=== PATIENT | male | born 1975 | race Caucasian/White ===

== ENCOUNTER 2022-10-08 18:52 | Emergency (ER) | payer SELFPAY ==
[2022-10-08] MEDS ORDERED: ALBUTEROL 2.5 MG/3 ML NEB SOL ONE (19:52)
[2022-10-08] MEDS ORDERED: BENZONATATE 100 MG CAP PO ONE (19:52)
[2022-10-08] MEDS ORDERED: IPRATROPIUM BROM 0.5MG/2.5ML ONE (19:52)
[2022-10-08] MEDS ORDERED: ONDANSETRON 4 MG/2 ML VIAL ONE (19:52)
[2022-10-08 20:03] LABS: Absolute Lymphocytes (CBC) 1.7 K/uL (0.7-4.9); Hematocrit 45.3 % (39.6-49.0); Lymphocytes % 40.3 % (15.3-44.8); MCV 91.4 fL (80-100); RBC Red Blood Cell Count 4.95 M/uL (4.33-5.43)
[2022-10-08 20:14] LABS: Protime INR 1.19
[2022-10-08 20:24] LABS: Albumin 3.7 g/dL (3.4-5.0); Bilirubin Direct 0.1 mg/dL (0-0.2); Bilirubin Total 0.4 mg/dL (0.2-1.0); Magnesium 2.2 mg/dL (1.8-2.4); Potassium 4.1 mmol/L (3.5-5.1); Protein, Total 7.3 g/dL (6.4-8.2); Troponin High Sensitivity 5.8 pg/mL (<58.9)
[2022-10-08 21:02] LABS: SARS-CoV-2 Antigen Rapid Res Negative (Negative)
--- NOTE | 2022-10-08 22:00 | RAD REPORT ---
EXAM DESCRIPTION: RAD - Chest Single View - 10/08/2022 9:10 pm CLINICAL HISTORY: CHEST PAIN COMPARISON: None TECHNIQUE: AP portable chest image was obtained 10/08/2022 9:10 pm . FINDINGS: No peripheral mass consolidation. Interstitial pattern is mildly prominent. Left hilar ful lness is present. Heart and vasculature are normal. No measurable pleural effusion and no pneumothora x. No acute bony abnormality seen. No acute aortic findings suspected. IMPRESSION: No peripheral mass or consolidation. Left hilar fullness and interstitial pattern are probably baseline. Infiltrate or mass are unlikely.
--- NOTE | 2022-10-08 22:12 | ER ---
Nurse's Notes [facility] Name: Sourav Barrios Age: 47 yrs Sex: Male : 1975 Arrival Date: 10/08/2022 Time: 18:57 Bed 5 Private MD: Diagnosis: Acute bronchitis, unspecified Presentation: 10/08 19:17 Chief complaint: Patient states: Coughing, congestion, N/V, fever X 1 week. Coronavirus ld1 screen: At this time, the client does not indicate any symptoms associated with coronavirus-19. Ebola Screen: No symptoms or risks identified at this time. Initial Sepsis Screen: Does the patient meet any 2 criteria? No. Patient's initial sepsis screen is negative. Does the patient have a suspected source of infection? No. Patient's initial sepsis screen is negative. Risk Assessment: Do you want to hurt yourself or someone else? Patient reports no desire to harm self or others. Onset of symptoms was October 08, 2022. 19:17 Method Of Arrival: Ambulatory ld1 19:17 Acuity: NAT 4 ld1 Triage Assessment: 19:18 General: Appears in no apparent distress. comfortable, Behavior is calm, cooperative, ld1 appropriate for age. Pain: Denies pain. EENT: No signs and/or symptoms were reported regarding the EENT system. Neuro: Level of Consciousness is awake, alert, obeys commands, Oriented to person, place, time, situation, Appropriate for age. Cardiovascular: Capillary refill < 3 seconds Patient's skin is warm and dry. Respiratory: Reports shortness of breath at rest cough that is productive, Airway is patent Respiratory effort is even, unlabored, Onset: The symptoms/episode began/occurred gradually, the patient has mild shortness of breath. GI: Abdomen is flat, non-distended. : No signs and/or symptoms were reported regarding the genitourinary system. Derm: No signs and/or symptoms reported regarding the dermatologic system. Musculoskeletal: No signs and/or symptoms reported regarding the musculoskeletal system. Historical: - Allergies: 19:18 Codeine; ld1 19:18 Narcotics; ld1 - Home Meds: 19:18 None [Active]; ld1 - PMHx: 19:18 None; ld1 - PSHx: 19:18 None; ld1 - Immunization history:: Adult Immunizations up to date, Client reports receiving the 2nd dose of the Covid vaccine. - Social history:: Smoking status: Patient reports the use of cigarette tobacco products, smokes one-half pack cigarettes per day, Patient uses alcohol, occasionally. Screenin:27 Abuse screen: Denies threats or abuse. Nutritional screening: No deficits noted. kl Tuberculosis screening: No symptoms or risk factors identified. Fall Risk None identified. Assessment: 19:26 General: Appears in no apparent distress. comfortable, well developed, well nourished, Behavior is calm, cooperative. Pain: Complains of pain in anterior aspect of right upper chest and right nipple Pain currently is 5 out of 10 on a pain scale. Aggravated by coughing. Neuro: No deficits noted. Cardiovascular: No deficits noted. Capillary refill < 3 seconds Rhythm is sinus rhythm. Respiratory: Airway is patent Respiratory effort is even, unlabored, Respiratory pattern is regular, symmetrical. GI: No deficits noted. No signs and/or symptoms were reported involving the gastrointestinal system. : No deficits noted. No signs and/or symptoms were reported regarding the genitourinary system. EENT: No deficits noted. No signs and/or symptoms were reported regarding the EENT system. Derm: No deficits noted. No signs and/or symptoms reported regarding the dermatologic system. Musculoskeletal: No deficits noted. No signs and/or symptoms reported regarding the musculoskeletal system. 20:30 Reassessment: Patient appears in no apparent distress at this time. Patient is alert, kl oriented x 3, equal unlabored respirations, skin warm/dry/pink. Patient states feeling better. Patient states symptoms have improved. 21:30 Reassessment: No changes from previously documented assessment. Patient and/or family kl updated on plan of care and expected duration. Pain level reassessed. Patient is alert, oriented x 3, equal unlabored respirations, skin warm/dry/pink. 22:29 Respiratory: Breath sounds are clear. Vital Signs: 19:17 BP 109 / 74; Pulse 74; Resp 18; Temp 99.5(O); Pulse Ox 99% on R/A; Weight 116.12 kg; ld1 Height 6 ft. 0 in. (182.88 cm); Pain 0/10; 20:12 BP 104 / 79; Pulse 52; Resp 18; Pulse Ox 100% on Nebulizer Mask; Pain 0/10; kl 22:28 BP 98 / 65; Pulse 72; Resp 16; Temp 98.2; Pulse Ox 99% on R/A; Pain 0/10; kl 19:17 Body Mass Index 34.72 (116.12 kg, 182.88 cm) ld1 ED Course: 18:57 Patient arrived in ED. am2 19:12 Girma Cisneros PA is PHCP. cp 19:12 Kyaw Lyn MD is Attending Physician. cp 19:18 Triage completed. ld1 19:18 Arm band placed on right wrist. ld1 19:27 No provider procedures requiring assistance completed. kl 19:28 Client placed on continuous cardiac and pulse oximetry monitoring. NIBP monitoring kl applied. 19:29 EKG completed in triage. Results shown to MD. kl 19:45 Inserted saline lock: 20 gauge in right antecubital area, using aseptic technique. kl 19:59 Basic Metabolic Panel Sent. kl 19:59 CBC with Diff Sent. kl 19:59 LFT's Sent. kl 19:59 Magnesium Sent. kl 19:59 NT PRO-BNP Sent. kl 19:59 PT-INR Sent. kl 19:59 Troponin HS Sent. kl 21:12 XRAY Chest (1 view) In Process Unspecified. EDMS 22:29 IV discontinued, intact, bleeding controlled, No redness/swelling at site. Pressure kl dressing applied. 22:30 Patient has correct armband on for positive identification. kl Administered Medications: 19:59 Drug: Zofran (Ondansetron) 4 mg Route: IVP; Site: right antecubital; kl 19:59 Drug: Albuterol - atroVENT (ipratropium) (3:1) (2.5 mg - 0.5 mg) 3 ml Route: Nebulizer; kl 19:59 Drug: Tessalon Perle (benzonatate) 200 mg Route: PO; kl Medication: 22:30 VIS not applicable for this client. Outcome: 22:11 Discharge ordered by . cp 22:29 Discharged to home ambulatory, with family. kl 22:29 Condition: improved 22:29 Discharge instructions given to patient, family, Instructed on discharge instructions, follow up and referral plans. Demonstrated understanding of instructions, follow-up care, medications, Prescriptions given X 3. 22:30 Patient left the ED. Signatures: Dispatcher [employer] EDME Isaak, Pepper, RN RN Girma Vital PA PA cp Moreno, Amanda am2 Dibbern, Lauren, RN RN ld1 Corrections: (The following items were deleted from the chart) 19:18 Allergies: No Known Allergies; ld1 ld1 19:18 Allergies: Latex, Natural Rubber; ld1 ld1
--- NOTE | 2022-10-08 22:12 | EDPHYS ---
Physician Documentation [facility] Name: Sourav Barrios Age: 47 yrs Sex: Male : 1975 Arrival Date: 10/08/2022 Time: 18:57 Bed 5 Private MD: ED Physician Kyaw Lyn HPI: 10/08 19:50 This 47 yrs old Male presents to ER via Ambulatory with complaints of Nasal Congestion, cp Chest Congestion, Breathing Difficulty. 19:50 The patient or guardian reports cough, that is constant. Onset: The symptoms/episode cp began/occurred 1 week(s) ago. Severity of symptoms: in the emergency department the symptoms are unchanged, despite home interventions. Associated signs and symptoms: Pertinent positives: chest pain, with cough, sore throat, nasal congestion, Pertinent negatives: fever. Historical: - Allergies: 19:18 Codeine; ld1 19:18 Narcotics; ld1 - Home Meds: 19:18 None [Active]; ld1 - PMHx: 19:18 None; ld1 - PSHx: 19:18 None; ld1 - Immunization history:: Adult Immunizations up to date, Client reports receiving the 2nd dose of the Covid vaccine. - Social history:: Smoking status: Patient reports the use of cigarette tobacco products, smokes one-half pack cigarettes per day, Patient uses alcohol, occasionally. ROS: 19:55 Constitutional: Positive for body aches, Negative for fever, poor PO intake. cp 19:55 Eyes: Negative for injury, pain, redness, and discharge. cp 19:55 ENT: Positive for sore throat, Negative for drainage from ear(s), ear pain, difficulty swallowing, difficulty handling secretions. 19:55 Cardiovascular: Positive for chest pain, with cough, Negative for edema, palpitations. 19:55 Respiratory: Positive for cough, "sounds productive", shortness of breath. 19:55 Abdomen/GI: Negative for abdominal pain, vomiting, diarrhea, constipation. 19:55 Neuro: Positive for headache, Negative for altered mental status, dizziness, weakness. 19:55 All other systems are negative. Exam: 20:00 Constitutional: The patient appears in no acute distress, alert, awake, cp non-diaphoretic, non-toxic, well developed, well nourished. 20:00 Head/Face: Normocephalic, atraumatic. cp 20:00 Eyes: Periorbital structures: appear normal, Conjunctiva: normal, no exudate, no injection, Sclera: no appreciated abnormality, Lids and lashes: appear normal, bilaterally. 20:00 ENT: External ear(s): are unremarkable, Ear canal(s): are normal, clear, TM's: dullness, bilaterally, Nose: is normal, Mouth: Lips: moist, Oral mucosa: pink and intact, moist, Posterior pharynx: Airway: no evidence of obstruction, patent, Tonsils: no enlargement, no exudate, Uvula: midline, erythema, that is mild, exudate, is not appreciated. 20:00 Neck: ROM/movement: is normal, is supple, without pain, no range of motions limitations, no meningismus. 20:00 Chest/axilla: Inspection: normal. 20:00 Cardiovascular: Rate: normal, Rhythm: regular, Edema: is not appreciated, JVD: is not appreciated. 20:00 Respiratory: the patient does not display signs of respiratory distress, Respirations: normal, no use of accessory muscles, no retractions, labored breathing, is not present, Breath sounds: bronchial sounds, that are mild, are heard diffusely, decreased breath sounds, are not appreciated, stridor, is not appreciated, + upper airway congestion. 20:00 Abdomen/GI: Inspection: abdomen appears normal, Bowel sounds: active, all quadrants, Palpation: soft, in all quadrants, mild abdominal tenderness, in the right diaphragm, rebound tenderness, is not appreciated, involuntary guarding, is not appreciated. 20:00 Back: pain, is absent, ROM is normal. 20:00 Skin: cellulitis, is not appreciated, no rash present. 20:00 Neuro: Orientation: to person, place \\T\\ time. Mentation: is normal, Motor: moves all fours, strength is normal, Sensation: is normal. Vital Signs: 19:17 BP 109 / 74; Pulse 74; Resp 18; Temp 99.5(O); Pulse Ox 99% on R/A; Weight 116.12 kg; ld1 Height 6 ft. 0 in. (182.88 cm); Pain 0/10; 20:12 BP 104 / 79; Pulse 52; Resp 18; Pulse Ox 100% on Nebulizer Mask; Pain 0/10; kl 22:28 BP 98 / 65; Pulse 72; Resp 16; Temp 98.2; Pulse Ox 99% on R/A; Pain 0/10; kl 19:17 Body Mass Index 34.72 (116.12 kg, 182.88 cm) ld1 MDM: 19:19 Patient medically screened. cp 22:10 Data reviewed: vital signs, nurses notes, lab test result(s), EKG, radiologic studies, cp plain films. 22:10 Differential Diagnosis: Bronchitis Influenza Upper Respiratory Infection Sinusitis cp Pharyngitis Viral Syndrome Pneumonia. Test interpretation: by ED physician or midlevel provider: ECG, plain radiologic studies. Counseling: I had a detailed discussion with the patient and/or guardian regarding: the historical points, exam findings, and any diagnostic results supporting the discharge/admit diagnosis, lab results, radiology results, the need for outpatient follow up, a family practitioner, to return to the emergency department if symptoms worsen or persist or if there are any questions or concerns that arise at home. Response to treatment: the patient's symptoms have markedly improved after treatment, and as a result, I will discharge patient. 10/08 19:41 Order name: Basic Metabolic Panel; Complete Time: 20:41 cp 10/08 19:41 Order name: CBC with Diff; Complete Time: 20:41 cp 10/08 19:41 Order name: LFT's; Complete Time: 20:41 cp 10/08 19:41 Order name: Magnesium; Complete Time: 20:41 cp 10/08 19:41 Order name: NT PRO-BNP; Complete Time: 20:41 cp 10/08 19:41 Order name: PT-INR; Complete Time: 20:41 cp 10/08 19:41 Order name: Troponin HS; Complete Time: 20:41 cp 10/08 19:41 Order name: XRAY Chest (1 view); Complete Time: 22:08 cp 10/08 20:00 Order name: SARS-COV-2 Antigen Rapid; Complete Time: 21:54 wm 10/08 20:00 Order name: Flu; Complete Time: 21:54 wm 10/08 19:41 Order name: Cardiac monitoring; Complete Time: 19:47 cp 10/08 19:41 Order name: EKG - Nurse/Tech; Complete Time: 19:47 cp 10/08 19:41 Order name: IV Saline Lock; Complete Time: 19:48 cp 10/08 19:41 Order name: Labs collected and sent; Complete Time: 19:48 10/08 19:41 Order name: O2 Per Protocol; Complete Time: 19:48 10/08 19:41 Order name: O2 Sat Monitoring; Complete Time: 19:48 10/08 19:41 Order name: Urine Dipstick-Ancillary (obtain specimen) 10/08 21:55 Order name: PO challenge cp Administered Medications: 19:59 Drug: Zofran (Ondansetron) 4 mg Route: IVP; Site: right antecubital; kl 19:59 Drug: Albuterol - atroVENT (ipratropium) (3:1) (2.5 mg - 0.5 mg) 3 ml Route: Nebulizer; kl 19:59 Drug: Tessalon Perle (benzonatate) 200 mg Route: PO; kl Disposition Summary: 10/08/22 22:11 Discharge Ordered Location: Home cp Problem: new cp Symptoms: have improved cp Condition: Stable cp Diagnosis - Acute bronchitis, unspecified cp Followup: cp - With: Private Physician - When: 2 - 3 days - Reason: Worsening of condition Discharge Instructions: - Discharge Summary Sheet cp - Acute Bronchitis, Adult cp - Steps to Quit Smoking cp - Smoking Tobacco Information, Adult cp - Form - Excuse from Work, School, or Physical Activity cp Forms: - Medication Reconciliation Form cp - Thank You Letter cp - Antibiotic Education cp - Prescription Opioid Use cp Prescriptions: - Bromfed DM 2-30-10 mg/5 mL Oral syrup - take 10 milliliter by ORAL route every 6 hours; 180 milliliter; Refills: 0, cp Product Selection Permitted - albuterol sulfate 90 mcg/actuation Inhalation HFA aerosol inhaler - inhale 2 puff by INHALATION route every 6 hours; 1 Inhaler; Refills: 0, Product cp Selection Permitted - Zithromax Z-Gerald 250 mg Oral Tablet - take 1 tablet by ORAL route as directed for 5 days Day 1 - take two (2) tablets cp one time. Day 2, 3, 4 , 5 take one (1) tablet once daily.; 6 tablet; Refills: 0, Product Selection Permitted Signatures: Dispatcher [employer] Nicole Eisenberg, MARILY-C MARILY-Pepper Tan RN RN Girma Vital PA PA cp Dibbern, Lauren, RN RN ld1 Corrections: (The following items were deleted from the chart) Allergies: No Known Allergies; ld1 ld1 :18 Allergies: Latex, Natural Rubber; ld1 ld1
[2022-10-08 23:47] VITALS: BP 98/65; TEMP 98.2; O2SAT 99
--- NOTE | 2022-10-11 06:36 | EKG ---
Test Date: 2022-10-08 Test Time: 19:19:02 [employer] Inspector: ERIS MEASUREMENT RESULTS: Intervals: Rate: 68 NH: 126 QRSD: 84 QT: 384 QTc: 408 [place]: P: 58 NH: 126 QRS: 34 T: 58 INTERPRETIVE STATEMENTS: Normal sinus rhythm Normal ECG No previous ECG available for comparison Electronically Signed On 10-11-22 06:31:05 DIRECTOR OF CARDIOLOGY by Tai Cornejo
== END 2022-10-08 22:30 | disposition home or self-care (01) ==
LOC: ER 18:52
DX: J20.9 Acute bronchitis, unspecified (principal); F17.210 Nicotine dependence, cigarettes, uncomplicated; Z20.822 Contact with and (suspected) exposure to COVID-19; Z88.5 Allergy status to narcotic agent
CPT/HCPCS: 36415; 71045; 80048; 80076; 83735; 83880; 84484; 85025; 85610; 87804; 87811; 93005; 94640; 96374; 99285; J2405